=== PATIENT | male | born 1975 | race African-American/Black ===

== ENCOUNTER 2018-02-01 14:03 | Emergency (ER) | payer OTHER ==
--- NOTE | 2018-02-01 14:46 | PDOC ---
Rapid Medical Evaluation Time Seen by Provider: 02/01/18 14:43 Medical Evaluation: Allergies Allergy/AdvReac Type Severity Reaction Status Date / Time No Known Allergies Allergy Verified 02/01/18 14:41 02/01/18 14:43 I have performed a brief in-person evaluation of this patient. The patient presents with a chief complaint of: nonverbal, developmental delay, was choking during meal at earlier, barry performed, "something came out, but we don't know if there's anything left in there" Pertinent physical exam findings: well appearing, no foreign object visualized I have ordered the following: x-ray The patient will proceed to the ED for further evaluation. Discharge Disposition - Diagnosis Choked on food - Referrals - Patient Instructions - Post Discharge Activity
[2018-02-01 14:49] VITALS: BP 129/79; PULSE 103; TEMP 97.7; BMI 23.6
--- NOTE | 2018-02-01 15:56 | PDOC ---
History of Present Illness - General Chief Complaint: Choking Sensation Stated Complaint: CHOKING Time Seen by Provider: 02/01/18 14:43 History Source: Care Provider Exam Limitations: Other - History of Present Illness Initial Comments: 02/01/18 15:57 42-year-old male presents the emergency room with complaints of a choking episode that happened at a fast food restaurant that he required to have the Heimlich performed by a direct care worker. Patient had no vomiting episodes of difficulty breathing following the Heimlich and was given something to drink without difficulty. Patient here for evaluation but has no complaints present. Patient with history of mental retardation but is able to voice discomfort or concerns with body language and in small phrases. Timing/Duration: 1 hour Severity: mild, moderate Associated Symptoms: reports: denies symptoms Past History - Past Medical History Allergies/Adverse Reactions: Allergies Allergy/AdvReac Type Severity Reaction Status Date / Time No Known Allergies Allergy Verified 02/01/18 14:41 Home Medications: Ambulatory Orders Unobtainable [Unobtainable] 02/01/18 CVA: No COPD: No DVT: No Diabetes: Yes (Pre-diabetic) Other medical history: Delopment disable - Immunization History Immunization Up to Date: Yes - Suicide/Smoking/Psychosocial Hx Smoking History: Never smoked Information on smoking cessation initiated: No Hx Alcohol Use: No Drug/Substance Use Hx: No Substance Use Type: None Patient Lives Alone: No Lives with/in: assisted living Review of Systems - Review of Systems Able to Perform ROS?: Yes Constitutional: No: Symptoms Reported HEENTM: No: Symptoms Reported Respiratory: Yes: Other Cardiac (ROS): No: Symptoms Reported ABD/GI: No: Symptoms Reported : No: Symptoms Reported Musculoskeletal: No: Symptoms Reported Integumentary: No: Symptoms Reported Neurological: No: Symptoms reported *Physical Exam - Vital Signs Last Vital Signs Temp Pulse Resp BP Pulse Ox 97.7 F 103 H 16 129/79 99 02/01/18 14:45 02/01/18 14:45 02/01/18 14:45 02/01/18 14:45 02/01/18 14:45 - Physical Exam General Appearance: Yes: Nourished, Appropriately Dressed. No: Apparent Distress HEENT: positive: Pharynx Normal (no erythema or pettechia to soft palate . uvula midline) Neck: positive: Supple Respiratory/Chest: positive: Lungs Clear, Normal Breath Sounds. negative: Respiratory Distress, Accessory Muscle Use Cardiovascular: positive: Regular Rhythm, Tachycardia. negative: Murmur Gastrointestinal/Abdominal: positive: Soft. negative: Tenderness Integumentary: positive: Normal Color, Warm, Moist Neurologic: positive: Motor Strength 5/5 (ambulatory) ED Treatment Course - RADIOLOGY Radiology Studies Ordered: Category Date Time Status NECK SOFT TISSUE [RAD] Stat Radiology 02/01/18 15:15 Ordered Medical Decision Making - Medical Decision Making 02/01/18 15:02 Patient status post choking episode after having a Heimlich performed by a direct care worker which was able to expel a piece of meat after incident. Patient was ordered for soft tissue of the neck and chest x-ray which were both negative for acute findings. Patient was sent back to facility with direct care worker. *DC/Admit/Observation/Transfer Diagnosis at time of Disposition: Choked on food - Discharge Dispostion Disposition: HOME Condition at time of disposition: Good - Referrals - Patient Instructions Printed Discharge Instructions: DI for Choking Episode Additional Instructions: The x-rays were negative for any acute findings. Please have patient follow up with the physician at the facility as needed. - Post Discharge Activity
== END 2018-02-01 16:15 | disposition home or self-care (01) ==
LOC: JERFT 14:03
DX: T17.828A Food in other parts of respiratory tract causing other injury, initial encounter (principal); X58.XXXA Exposure to other specified factors, initial encounter; Y93.89 Activity, other specified; Y92.511 Restaurant or cafe as the place of occurrence of the external cause; Y99.8 Other external cause status; R62.59 Other lack of expected normal physiological development in childhood; F79 Unspecified intellectual disabilities
CPT/HCPCS: 70360-TC-FY; 71046-TC-FY; 99281-25

== ENCOUNTER 2019-10-21 12:00 | Emergency (ER) | payer OTHER ==
[2019-10-21 12:09] VITALS: BP 144/75; PULSE 100; TEMP 98; BMI 25.8
[2019-10-21 13:51] LABS: PH,URINE 6.5 (5.0-8.0); URINE APPEARANCE CLEAR; URINE BILIRUBIN NEGATIVE (NEGATIVE); URINE COLOR YELLOW; URINE GLUCOSE (UA) NEGATIVE (NEGATIVE); URINE KETONE NEGATIVE (NEGATIVE); URINE LEUK ESTERASE NEGATIVE (NEGATIVE); URINE NITRITE NEGATIVE (NEGATIVE); URINE PROTEIN NEGATIVE (NEGATIVE); URINE UROBILINOGEN 0.2 mg/dL (0.2-1.0)
[2019-10-21 13:53] LABS: BASO % 0.7 % (0-2.0); EOS % 3.7 % (0-4.5); HEMATOCRIT 39.3 % (35.4-49); HEMOGLOBIN 12.9 GM/dL (11.7-16.9); MCH 29.3 pg (25.7-33.7); MCHC 32.8 g/dl (32.0-35.9); MEAN CELL VOLUME 89.3 fl (80-96); MEAN PLT VOLUME 7.6 fl (7.5-11.1); MONO % 9.2 % (3.8-10.2); NEUT % 63.4 % (42.8-82.8); PLATELET COUNT 270 K/MM3 (134-434); RDW 13.4 % (11.9-15.9); WHITE BLOOD COUNT 6.3 K/mm3 (4.0-10.0)
[2019-10-21 14:23] LABS: ALBUMIN 3.9 g/dl (3.4-5.0); BILIRUBIN,TOTAL 0.7 mg/dL (0.2-1); BLOOD UREA NITROGEN 11.7 mg/dL (7-18); CALCIUM 9.4 mg/dL (8.5-10.1); MAGNESIUM 2.2 mg/dL (1.8-2.4); POTASSIUM 3.9 mmol/L (3.5-5.1)
--- NOTE | 2019-10-21 14:43 | PDOC ---
*Physical Exam - Vital Signs Last Vital Signs Temp Pulse Resp BP Pulse Ox 98 F 100 H 18 144/75 97 10/21/19 12:03 10/21/19 12:03 10/21/19 12:03 10/21/19 12:03 10/21/19 14:25 ED Treatment Course - LABORATORY CBC & Chemistry Diagram: 10/21/19 13:38 10/21/19 13:38 - ADDITIONAL ORDERS Additional order review: Laboratory Results 10/21/19 10/21/19 13:38 13:38 Sodium 140 Potassium 3.9 Chloride 104 Carbon Dioxide 31 Anion Gap 5 L BUN 11.7 Creatinine 1.0 Est GFR (CKD-EPI)AfAm 104.88 Est GFR (CKD-EPI)NonAf 90.49 Random Glucose 94 Calcium 9.4 Magnesium 2.2 Total Bilirubin 0.7 AST 18 ALT 43 Alkaline Phosphatase 65 Total Protein 8.0 Albumin 3.9 Urine Color Yellow Urine Appearance Clear Urine pH 6.5 Ur Specific [place] 1.009 L Urine Protein Negative Urine Glucose (UA) Negative Urine Ketones Negative Urine Blood Negative Urine Nitrite Negative Urine Bilirubin Negative Urine Urobilinogen 0.2 Ur Leukocyte Esterase Negative 10/21/19 13:38 RBC 4.40 MCV 89.3 MCHC 32.8 RDW 13.4 MPV 7.6 Neutrophils % 63.4 Lymphocytes % 23.0 Monocytes % 9.2 Eosinophils % 3.7 Basophils % 0.7 Medical Decision Making - Medical Decision Making 10/21/19 14:42 Patient seen and evaluated with the nurse practitioner. I agree with the overall evaluation, assessment, and management with the following summary of visit: 44-year-old male from retirement with generalized weakness, vital signs stable here, exam findings as noted. Labs sent and within normal limits Urinalysis clear Abdominal x-ray without acute pathology Reassess, disposition accordingly
--- NOTE | 2019-10-21 15:20 | PDOC ---
History of Present Illness - General Chief Complaint: Weakness Stated Complaint: WEAKNESS Time Seen by Provider: 10/21/19 13:07 History Source: Care Provider Exam Limitations: No Limitations - History of Present Illness Initial Comments: 10/21/19 14:17 44-year-old male with history of MRDD presents to the ED with complaints of mild abdominal distention along with mild generalized weakness. Patient has had no difficulty urinating eating or has had abnormal vital signs. As per direct care staff patient states did have a bowel movement and since he is independent there is no record-keeping of bowel movements. Patient has not fallen nor has he had any bouts of vomiting or loose stool. Is this a multiple visit Asthma Patient?: No Timing/Duration: 24 hours Severity: mild Associated Symptoms: reports: fever/chills, weakness, other Past History - Travel Traveled outside of the country in the last 30 days: No Close contact w/someone who was outside of country & ill: No - Past Medical History Allergies/Adverse Reactions: Allergies Allergy/AdvReac Type Severity Reaction Status Date / Time No Known Allergies Allergy Verified 10/21/19 12:09 Home Medications: Ambulatory Orders Ammonium Lactate Cream [Lac-Hydrin 12% *Cream*] 1 applic TP DAILY 10/21/19 Cholecalciferol (Vitamin D3) [Vitamin D3 -] 1,000 unit PO DAILY 10/21/19 Citalopram Hydrobromide [Celexa -] 20 mg PO DAILY 10/21/19 LORazepam [Ativan] 2 mg PO Q6H PRN 10/21/19 LORazepam [Ativan] 2 mg PO Q6H PRN 10/21/19 Multivitamin [Multiple Vitamins] 1 each PO DAILY 10/21/19 Nystatin [Nystop] 1 applic TP BID 10/21/19 Risperidone 3 mg PO DAILY 10/21/19 CVA: No COPD: No DVT: No Diabetes: Yes (Pre-diabetic) Psychiatric Problems: (MENTAL RETARDATON) - Immunization History Immunization Up to Date: Yes - Psycho Social/Smoking Cessation Hx Smoking History: Never smoked Information on smoking cessation initiated: No Hx Alcohol Use: No Drug/Substance Use Hx: No Substance Use Type: None Patient Lives Alone: No Lives with/in: assisted living Review of Systems - Review of Systems Able to Perform ROS?: Yes Constitutional: No: Symptoms Reported HEENTM: No: Symptoms Reported Respiratory: No: Symptoms reported Cardiac (ROS): No: Symptoms Reported ABD/GI: Yes: Nausea, Abdominal cramping. No: Constipated, Diarrhea, Vomiting : No: Symptoms Reported Musculoskeletal: No: Symptoms Reported Integumentary: No: Symptoms Reported Neurological: Yes: Weakness Endocrine: No: Symptoms Reported *Physical Exam - Vital Signs Last Vital Signs Temp Pulse Resp BP Pulse Ox 98 F 100 H 18 144/75 97 10/21/19 12:03 10/21/19 12:03 10/21/19 12:03 10/21/19 12:03 10/21/19 14:25 - Physical Exam General Appearance: Yes: Nourished, Appropriately Dressed. No: Apparent Distress HEENT: negative: Pale Conjunctivae Neck: positive: Supple Respiratory/Chest: positive: Lungs Clear, Normal Breath Sounds. negative: Respiratory Distress, Accessory Muscle Use Cardiovascular: positive: Regular Rhythm, Tachycardia. negative: Murmur Gastrointestinal/Abdominal: positive: Normal Bowel Sounds, Soft, Distended. negative: Tenderness Musculoskeletal: negative: CVA Tenderness Extremity: positive: Normal Capillary Refill, Normal Inspection Integumentary: positive: Normal Color, Warm, Moist Neurologic: positive: Motor Strength 5/5 (ambulatory) ED Treatment Course - LABORATORY CBC & Chemistry Diagram: 10/21/19 13:38 10/21/19 13:38 - ADDITIONAL ORDERS Additional order review: Laboratory Results 10/21/19 10/21/19 13:38 13:38 Sodium 140 Potassium 3.9 Chloride 104 Carbon Dioxide 31 Anion Gap 5 L BUN 11.7 Creatinine 1.0 Est GFR (CKD-EPI)AfAm 104.88 Est GFR (CKD-EPI)NonAf 90.49 Random Glucose 94 Calcium 9.4 Magnesium 2.2 Total Bilirubin 0.7 AST 18 ALT 43 Alkaline Phosphatase 65 Total Protein 8.0 Albumin 3.9 Urine Color Yellow Urine Appearance Clear Urine pH 6.5 Ur Specific [place] 1.009 L Urine Protein Negative Urine Glucose (UA) Negative Urine Ketones Negative Urine Blood Negative Urine Nitrite Negative Urine Bilirubin Negative Urine Urobilinogen 0.2 Ur Leukocyte Esterase Negative 10/21/19 13:38 RBC 4.40 MCV 89.3 MCHC 32.8 RDW 13.4 MPV 7.6 Neutrophils % 63.4 Lymphocytes % 23.0 Monocytes % 9.2 Eosinophils % 3.7 Basophils % 0.7 - RADIOLOGY Radiology Studies Ordered: Category Date Time Status KUB (KID UR & BLAD) [RAD] Stat Radiology 10/21/19 13:34 Completed Medical Decision Making - Medical Decision Making 10/21/19 14:21 Chief complaint: Mild weakness abdominal distention concern for constipation/ obstruction Exam: Tachycardic at 100. Bowel sounds present throughout. No abdominal tenderness/wincing with exam Plan: Labs, urine, KUB 10/21/19 15:26 Laboratory Tests 10/21/19 10/21/19 10/21/19 13:38 13:38 13:38 WBC 6.3 Hgb 12.9 Hct 39.3 Absolute Neuts (auto) 4.0 Neutrophils % 63.4 Sodium 140 Potassium 3.9 Chloride 104 Carbon Dioxide 31 Anion Gap 5 L BUN 11.7 Creatinine 1.0 Est GFR (CKD-EPI)NonAf 90.49 Random Glucose 94 Calcium 9.4 Magnesium 2.2 Total Bilirubin 0.7 AST 18 ALT 43 Alkaline Phosphatase 65 Total Protein 8.0 Albumin 3.9 Ur Specific [place] 1.009 L Urine Nitrite Negative Urine Bilirubin Negative X-ray shows constipation/fecal impaction without obstruction free air or other etiology. Patient will be discharged with MiraLAX. Patient otherwise smiling and tolerated apple juice and sandwich along with nallely crackers Discharge - Discharge Information Problems reviewed: No Clinical Impression/Diagnosis: Constipation Condition: Good - Follow up/Referral - Patient Discharge Instructions Patient Printed Discharge Instructions: DI for Constipation Additional Instructions: Please encourage plenty of fluids. Please give patient MiraLAX today and may repeat in 4 hours if no bowel movement. - Post Discharge Activity
== END 2019-10-21 15:53 | disposition home or self-care (01) ==
LOC: JER 12:00
DX: K59.00 Constipation, unspecified (principal); F79 Unspecified intellectual disabilities
CPT/HCPCS: 36415; 74018-TC-FY; 80053; 81003; 83735; 85025; 87086; 99283-25